=== PATIENT | female | born 1970 | race Caucasian/White ===

== ENCOUNTER 2022-06-22 18:19 | Emergency (ER) | payer OTHER, SELFPAY ==
[2022-06-22 18:27] VITALS: BP 126/94; PULSE 108; RESP 18; TEMP 37; O2SAT 98; BMI 27.8
--- NOTE | 2022-06-22 18:31 | DI.RAD.S_ITS ---
PROCEDURE: XR HAND RT MIN 3V INDICATIONS: Fall with injury, poss foreign body TECHNIQUE: Three views of the hand acquired. COMPARISON: None. FINDINGS: Bones: No acute fractures or dislocations. Carpal bones are normally aligned. No suspicious bony lesions. Mild degenerative changes at the 1st carpometacarpal joint. Soft tissues: Punctate hyperdense foci are seen along the volar radial aspect of the hand overlying the thenar musculature, which could represent tiny radiopaque foreign bodies. IMPRESSION: 1. Suspected punctate radiopaque foreign bodies in thenar soft tissues. 2. No acute osseous abnormality. If clinical suspicion and/or symptoms persist, additional imaging with repeat plain films, or advanced imaging (e.g. CT, MRI) may be helpful for further assessment. Approved by: Nikhil Shah M.D. on 06/22/2022 at 19:50
[2022-06-22] MEDS: ACETAMINOPHEN 325 MG TABLET 650 MG PO (18:55)
[2022-06-22] MEDS: IBUPROFEN 400 MG TABLET 600 MG PO (18:56)
--- NOTE | 2022-06-22 18:56 | ED.UPPEXIN ---
HPI - Extremity Injury (Upper) <SISSY Brush - Last Filed: 06/22/22 19:53> General Chief Complaint: Extremity Injury, Upper Stated Complaint: Fell on rocks, Hand lac Time Seen by Provider: 06/22/22 18:34 Source: patient Mode of arrival: Ambulatory History of Present Illness HPI narrative: This is a 51-year-old female presents to the emergency department after she fell on the rocks and cut her hand on coral at [facility] today. She states that her tetanus is out-of-date and needs to be updated. She is not from this area. Has a laceration to the palm of her hand approximately 2 cm, it is shaped like an L with some foreign debris. Wound has not been cleansed or irrigated yet. X-ray was obtained to identify any foreign debris. Related Data Previous Rx's Medication Instructions Recorded doxycycline hyclate 100 mg capsule 100 mg PO BID 7 days #14 caps 06/22/22 mupirocin 2 % topical ointment 1 applic topical DAILY #15 grams 06/22/22 Allergies Allergy/AdvReac Type Severity Reaction Status Date / Time No Known Drug Allergies Allergy Verified 06/22/22 18:27 Review of Systems <SISSY Brush - Last Filed: 06/22/22 19:53> Review of Systems ROS Unobtainable: All systems reviewed & are unremarkable except as noted in HPI and below Patient History <SISSY Brush - Last Filed: 06/22/22 19:53> Social History Smoking Status: Never smoker Smoking Status: Never smoker Substance Use Type: does not use Exam <SISSY Brush - Last Filed: 06/22/22 19:53> Narrative Exam Narrative: Reviewed vitals signs and nursing notes. General: Pleasant, sitting upright, in no acute distress, well groomed, afebrile MSK: moves all extremities, no weakness, normal tone, ambulatory without deficit normal range of motion to right hand without deficit, she is right-hand dominant Skin: brisk capillary refill, without rash, laceration to the palm aspect near her thumb/MCP joint. This was shaped like an L, this is thoroughly irrigated with normal saline, multiple small pieces of foreign debris, sand, and dirt was removed, no visible foreign body left, no suspected tendon or vascular injury. Laceration repair was completed with 6 non dissolvable nylon sutures. Neuro: normal speech and cognition, A&O x3 Initial Vital Signs Initial Vital Signs: Vital Signs Temperature 98.6 F 06/22/22 18:27 Pulse Rate 108 H 06/22/22 18:27 Respiratory Rate 18 06/22/22 18:27 Blood Pressure 126/94 H 06/22/22 18:27 Pulse Oximetry 98 06/22/22 18:27 Oxygen Delivery Method Room Air 06/22/22 18:27 <Josemanuel Kline DO - Last Filed: 06/23/22 11:24> Initial Vital Signs Initial Vital Signs: Vital Signs Temperature 98.6 F 06/22/22 18:27 Pulse Rate 108 H 06/22/22 18:27 Respiratory Rate 18 06/22/22 18:27 Blood Pressure 126/94 H 06/22/22 18:27 Pulse Oximetry 98 06/22/22 18:27 Oxygen Delivery Method Room Air 06/22/22 18:27 Procedures <SISSY Brush - Last Filed: 06/22/22 19:53> Laceration Repair Laceration 1: Size (cm): 2 Description: flap, irregular and contaminated Depth: simple, single layer Local Anesthetic: lidocaine 2% Amount of anesthesia used (mL): 4 Pre-repair: wound explored, irrigated extensively and deep structures intact Skin layer closed with: nylon Skin layer suture size: 5-0 Number of sutures: 6 Technique: simple, interrupted Course <SISSY Brush - Last Filed: 06/22/22 19:53> Orders Ordered: Discontinued Medications Acetaminophen (Acetaminophen 325 Mg Tablet) 650 mg PO NOW ONE Stop: 06/22/22 18:40 Last Admin: 06/22/22 18:55 Dose: 650 mg Documented By: SY Bacitracin (Bacitracin Oint 0.9 Gm Pckt) 1 applic TOP NOW ONE Stop: 06/22/22 19:35 Last Admin: 06/22/22 19:46 Dose: 1 applic Documented By: OZIEL Diphtheria/Tetanus/Acell Pertussis (Tet,Diph,Pertuss(Acell),Vac/Pf 0.5 Ml Syringe) 0.5 ml IM .ONCE ONE Stop: 06/22/22 18:40 Last Admin: 06/22/22 18:57 Dose: 0.5 ml Documented By: SY Doxycycline Hyclate (Doxycycline Hyclate 100 Mg Tablet) 100 mg PO NOW ONE Stop: 06/22/22 18:40 Last Admin: 06/22/22 18:57 Dose: 100 mg Documented By: SY Ibuprofen (Ibuprofen 400 Mg Tablet) 600 mg PO NOW ONE Stop: 06/22/22 18:40 Last Admin: 06/22/22 18:56 Dose: 600 mg Documented By: SY Lidocaine HCl (Lidocaine 2% Inj Sdv 5ml) 5 ml INJ INTRA-OP ONE Stop: 06/22/22 18:40 Last Admin: 06/22/22 18:58 Dose: 5 ml Documented By: SY Vital Signs Vital signs: Vital Signs - 8 hr 06/22/22 18:27 Temperature 98.6 F Pulse Rate 108 H Respiratory Rate 18 Blood Pressure 126/94 H Pulse Oximetry 98 Oxygen Delivery Method Room Air <Josemanuel Kline DO - Last Filed: 06/23/22 11:24> Orders Ordered: Discontinued Medications Acetaminophen (Acetaminophen 325 Mg Tablet) 650 mg PO NOW ONE Stop: 06/22/22 18:40 Last Admin: 06/22/22 18:55 Dose: 650 mg Documented By: SY Bacitracin (Bacitracin Oint 0.9 Gm Pckt) 1 applic TOP NOW ONE Stop: 06/22/22 19:35 Last Admin: 06/22/22 19:46 Dose: 1 applic Documented By: OZIEL Diphtheria/Tetanus/Acell Pertussis (Tet,Diph,Pertuss(Acell),Vac/Pf 0.5 Ml Syringe) 0.5 ml IM .ONCE ONE Stop: 06/22/22 18:40 Last Admin: 06/22/22 18:57 Dose: 0.5 ml Documented By: SY Doxycycline Hyclate (Doxycycline Hyclate 100 Mg Tablet) 100 mg PO NOW ONE Stop: 06/22/22 18:40 Last Admin: 06/22/22 18:57 Dose: 100 mg Documented By: SY Ibuprofen (Ibuprofen 400 Mg Tablet) 600 mg PO NOW ONE Stop: 06/22/22 18:40 Last Admin: 06/22/22 18:56 Dose: 600 mg Documented By: SY Lidocaine HCl (Lidocaine 2% Inj Sdv 5ml) 5 ml INJ INTRA-OP ONE Stop: 06/22/22 18:40 Last Admin: 06/22/22 18:58 Dose: 5 ml Documented By: SY Vital Signs Vital signs: Vital Signs - 8 hr 06/22/22 18:27 Temperature 98.6 F Pulse Rate 108 H Respiratory Rate 18 Blood Pressure 126/94 H Pulse Oximetry 98 Oxygen Delivery Method Room Air MDM - Extremity Injury (Upper) <Arianne Gomez, [facility] - Last Filed: 06/22/22 19:53> MDM Narrative Medical decision making narrative: Chief Complaint: Hand laceration Multiple etiologies for patient's symptoms considered including, but not limited to: Hand laceration, foreign body, tendon injury, vascular injury, acute fracture, salt water exposure I have independently reviewed the patient's vital signs and nursing notes as well as prior records if available. Pertinent Imaging reviewed: Hand x-ray shows small foci of superficial granules, this was thoroughly irrigated and removed prior to suture repair Patient's hand was repaired with 6 sutures, she tolerated well, all foreign debris was removed. Tetanus was updated, bacitracin and Band-Aid was applied, she is encouraged to follow-up with her primary care provider for suture removal in 7-10 days. She also understands return to the emergency department for new or worsening symptoms, redness or streaking up her hand or purulence discharge. Social considerations that may affect disposition: none Questions are addressed and there is agreement with the plan and for follow-up. Patient is appropriate for outpatient management. Discharge Plan Departure Patient Disposition: Home Clinical Impression: Laceration of hand Qualifiers: Encounter type: initial encounter Foreign body presence: with foreign body Laterality: right Qualified Code(s): S61.421A - Laceration with foreign body of right hand, initial encounter Instructions: DI for Laceration Repair Activity Restrictions/Additional Instructions: *You have been diagnosed with a hand laceration involving salt water and some foreign debris which was irrigated out of the wound. If you notice any redness or streaking up your wrist or hand, please go to the nearest emergency room for another evaluation. This antibiotic should help prevent that infection but if there is any particles of foreign debris still left in, it may get infected. Use the topical antibiotic ointment, finish her prescription of antibiotics, please return to the emergency department for new or worsening symptoms. It was nice to meet you, give my best to the [employer] from [employer]. :) *What to do: *Please continue to take your regular medications as directed. [x] New medication prescriptions sent to your pharmacy: [[facility] ] [ ] New medication written as a paper prescription [ ] No new medications given *Please follow up with your primary care provider in 2-3 days, call for an appointment. Let them know you were seen in the Emergency Department and that we asked that you be seen for follow-up. We will electronically transmit a record of today's note if your PCP is in our system *If you do not have a primary care provider please contact [phone] to establish care with one of [facility] primary care providers. *Return to Emergency Department if you should have any new, worsening, or concerning symptoms, such as [fever greater than 101F, chills, worsening pain, persistent vomiting or other bothersome symptoms]. Prescriptions: New doxycycline hyclate 100 mg capsule 100 mg PO BID 7 Days Qty: 14 0RF mupirocin 2 % ointment 1 applic topical DAILY Qty: 15 0RF Stand Alone Forms: Patient Portal/API <Josemanuel Kline DO - Last Filed: 06/23/22 11:24> Cosign ED Attending Cosignature Attestation: I was immediately available in the department for consultation. This documentation has been reviewed and I agree with assessment and plan. Supervised by Josemanuel Kline DO
[2022-06-22] MEDS: TET,DIPH,PERTUSS(ACELL),VAC/PF 0.5 ML SYRINGE IM (18:57)
[2022-06-22] MEDS: DOXYCYCLINE HYCLATE 100 MG TABLET PO (18:57)
[2022-06-22] MEDS: LIDOCAINE 2% INJ SDV 5ML 5 ML INJ (18:58)
[2022-06-22] MEDS: BACITRACIN OINT 0.9 GM PCKT 1 APPLIC TOP (19:46)
[2022-06-22 19:50] VITALS: BP 141/67; PULSE 95; RESP 16; O2SAT 97
--- NOTE | 2022-06-22 20:01 | PC.NURSE ---
Bacitracin applied to suture line & bandaid placed to wound.
== END 2022-06-22 20:01 | disposition home or self-care (01) ==
PROVIDERS: Emergency Provider Nurse Practitioner Critical Care Medicine
DX: S61.421A Laceration with foreign body of right hand, initial encounter (principal); W26.8XXA Contact with other sharp object(s), not elsewhere classified, initial encounter; Y92.832 Beach as the place of occurrence of the external cause; Z23 Encounter for immunization
CPT/HCPCS: 12001; 73130; 90471; 99284; 90715